=== PATIENT | male | born 1995 | race Two or more races ===

== ENCOUNTER 2018-06-16 12:10 | Emergency (ER) | payer OTHER ==
[2018-06-16] MEDS ORDERED: OXYCODONE-ACETAMINOPHEN 5-325 MG TABLET PO ONE (12:50)
--- NOTE | 2018-06-16 12:55 | RADIOLOGY REPORT (SQ) ---
EXAM DESCRIPTION: FOOT LEFT COMPLETE COMPLETED DATE/TIME: 06/16/2018 12:48 pm REASON FOR STUDY: foot pain swelling COMPARISON: None. NUMBER OF VIEWS: Three views. TECHNIQUE: AP, lateral and oblique radiographic images acquired of the left foot. LIMITATIONS: None. FINDINGS: MINERALIZATION: Normal. BONES: There is a displaced and comminuted fracture of the left navicular bone. No worrisome bone le sions. JOINTS: No effusions. SOFT TISSUES: No soft tissue swelling. No foreign body. OTHER: No other significant finding. IMPRESSION: There is a displaced and comminuted fracture of the left navicular bone. Consider CT to further evaluate fracture anatomy. TECHNICAL DOCUMENTATION: JOB ID: [id number] [employer]- All Rights Reserved Reading location - IP/workstation name: [email or web address]
--- NOTE | 2018-06-16 12:58 | ER Document Report ---
HPI - HPI Patient complains to provider of: Left foot injury Time Seen by Provider: 06/16/18 12:44 Onset: Just prior to arrival Onset/Duration: Sudden Quality of pain: Sharp Pain Level: 3 Context: Patient states that he fell off of a single-story roof and landed on his feet. Patient complains of left foot pain. Patient denies any head injury, neck or back pain. Patient states that he is unable to bear weight. Associated Symptoms: Other - Left foot pain. denies: Nausea, Vomiting Exacerbated by: Standing, Movement Relieved by: Denies Similar symptoms previously: No Recently seen / treated by doctor: No - ROS ROS below otherwise negative: Yes Systems Reviewed and Negative: Yes All other systems reviewed and negative - NEURO Neurology: DENIES: Headache, Weakness - GASTROINTESTINAL Gastrointestinal: DENIES: Nausea - MUSCULOSKELETAL Musculoskeletal: REPORTS: Extremity pain - Left foot, Swelling. DENIES: Back Pain, Neck Pain - DERM Skin Color: Normal Skin Problems: None Past Medical History - General Information source: Patient - Social History Smoking Status: Never Smoker Frequency of alcohol use: Occasional Drug Abuse: None Occupation: [employer] Lives with: Family Family History: Reviewed & Not Pertinent - Medical History Medical History: Negative Surgical Hx: Negative Vertical Provider Document - CONSTITUTIONAL Agree With Documented VS: Yes Exam Limitations: No Limitations General Appearance: WD/WN, No Apparent Distress - HEENT HEENT: Atraumatic, Normocephalic - NECK Neck: Normal Inspection, Supple. negative: Lymphadenopathy-Left, Lymphadenopathy-Right - RESPIRATORY Respiratory: Breath Sounds Normal, No Respiratory Distress - CARDIOVASCULAR Cardiovascular: Regular Rate, Regular Rhythm, No Murmur Pulses: Normal: Dorsalis pedis - BACK Back: Normal Inspection Notes: No spinal tenderness - MUSCULOSKELETAL/EXTREMETIES Musculoskeletal/Extremeties: MAEW, Tender - Left midfoot foot tenderness over cuneiform and navicular bones, Edema - NEURO Level of Consciousness: Awake, Alert, Appropriate Notes: Patient unable to bear weight due to tenderness - DERM Integumentary: Warm, Dry, No Rash Course - Re-evaluation Re-evalutation: 06/16/18 12:[address] Skinner, Dr. Skinner reviewed patient's x-rays and recommends placing patient in a posterior splint and having him follow-up in the office stating that patient will need surgical repair on outpatient basis. Patient advised that he will need surgery to correct his injury and that he needs to call the orthopedic office today to make an appointment. Patient advised that I did speak with Dr. Skinner and that his office will follow him up. Patient verbalized understanding and agrees with plan of care at this time. - Diagnostic Test Radiology reviewed: Pending, Image reviewed Procedures - Immobilization Left Foot Pre-Proc Neuro Vasc Exam: Normal Immobilizer type: Posterior ankle Performed by: PCT Post-Proc Neuro Vasc Exam: Normal Alignment checked and good: Yes Discharge - Discharge Clinical Impression: Foot fracture, left Qualifiers: Encounter type: initial encounter Fracture type: closed Qualified Code(s): S92.902A - Unspecified fracture of left foot, initial encounter for closed fracture Condition: Stable Disposition: HOME, SELF-CARE Instructions: Foot Laceration ([facility]), Ice & Elevation ([facility]), Oral Narcotic Medication ([facility]), Splint Precautions ([facility]) Additional Instructions: Return immediately for any new or worsening symptoms Followup with orthopedics for further management. You will need to have surgery to correct this injury. Let the office staff know that we spoke with Dr. Skinner and that you needed to follow-up in the office. No weight bearing to left foot Prescriptions: Naproxen [Naprosyn 250 Nmg Tablet] 1 tab PO BID #14 tablet Oxycodone HCl/Acetaminophen [Percocet 5-325 mg Tablet] 1 tab PO ASDIR PRN #15 tablet PRN Reason: Forms: Return to Work Referrals: [facility] ([facility] [Provider Group] - Follow up tomorrow
--- NOTE | 2018-06-16 13:32 | ER Document Report ---
Doctor's Note Notes: 06/16/18 13:31 I personally and independently obtained patient history and examined the patient and have reviewed the APC's note, reviewed, discussed and agree with their assessment and plan. HISTORY OF PRESENT ILLNESS: Patient is a 23-year-old male that presents to the emergency department for chief complaint of left foot injury. ROS: Constitutional: Negative for fever. Cardiovascular: Negative for chest pain. Respiratory: Negative for shortness of breath. Gastrointestinal: Negative for vomiting or abdominal pain Musculoskeletal: Left foot pain Skin: Negative for rash. Neurological: Negative for weakness or numbness. Unless otherwise stated in this report the patient's positive and negative responses for review of systems for constitutional, eyes, ENT, cardiovascular, respiratory, gastrointestinal, neurological, genitourinary, musculoskeletal, and integumentary systems and related systems to the presenting problem are either as stated in the HPI or were not pertinent or were negative for the symptoms and/or complaints related to the presenting medical problem. PHYSICAL EXAMINATION: Vital signs reviewed, nursing noted reviewed. GENERAL: Well-appearing, well-nourished and in no acute distress. HEAD: Atraumatic, normocephalic. EYES: Eyes appear normal, conjunctiva are normal. ENT: nares patent, oropharynx clear without exudates. Moist mucous membranes. NECK: Normal range of motion, supple without lymphadenopathy LUNGS: Breath sounds clear to auscultation bilaterally and equal. No wheezes rales or rhonchi. HEART: Regular rate and rhythm without murmurs ABDOMEN: Soft, nontender, normoactive bowel sounds. No rebound, guarding, or rigidity. No masses appreciated. EXTREMITIES: Posterior splint to left lower extremity with normal capillary refill in toes, splint appropriately placed NEUROLOGICAL: No focal neurological deficits. Moves all extremities spontaneously Motor and sensory grossly intact on exam. PSYCH: Normal mood, normal affect. SKIN: Warm, Dry, normal turgor, no rashes or lesions noted on exposed MEDICAL DECISION MAKING: Patient's pain is under control. Splint placement is appropriate. Patient able to ambulate with his crutches. He will follow with orthopedics for likely surgical repair tomorrow Please review detail APC documentation. *Note is created using voice recognition software and may contain spelling, syntax or grammatical errors.
[2018-06-16 13:33] VITALS: BP 135/88
== END 2018-06-16 13:33 | disposition home or self-care (01) ==
LOC: ER 12:10
PROC: 2W3RX1Z Immobilization of Left Lower Leg using Splint (ICD-10-PCS; principal; 2018-06-16)
DX: S92.902A Unspecified fracture of left foot, initial encounter for closed fracture (principal); M79.672 Pain in left foot; M79.89 Other specified soft tissue disorders; W13.2XXA Fall from, out of or through roof, initial encounter
CPT/HCPCS: 99283